=== PATIENT | male | born 1975 | race Caucasian/White ===

== ENCOUNTER → 2017-11-30 12:04 | Outpatient (CLI) | payer OTHER, SELFPAY ==
--- NOTE | 2017-11-30 12:35 | CT_ITS ---
STUDY: CT ABDOMEN AND PELVIS WITHOUT CONTRAST REASON FOR EXAM: Male, 42 years old. Left-sided abdominal pain and diarrhea. RADIATION DOSAGE (If Supplied By Facility): CTDIvol = ( 17.58 ) mGy, DLP = ( 1001.31 ) mGycm TECHNIQUE: Transaxial images were obtained from the dome of the diaphragm to the symphysis pubis without oral contrast, and without intravenous contrast. Sagittal and coronal images were reconstructed. Individualized dose optimization techniques were used for this CT. COMPARISON: Comparison is made with prior examination of December 11, 2008. FINDINGS: Mild degree of increased markings at the lung bases suggestive of mild atelectasis and/or scarring. The visualized portions of the heart are within normal limits. There is decreased attenuation of the liver consistent with steatosis. I suspect focal fatty sparing in the region of the gallbladder fossa. There is also evidence of a 1.2 cm rounded nodule of increased attenuation. This may represent a small hemangioma. This is unchanged. Normal gallbladder and extrahepatic biliary system. Normal spleen. Normal pancreas. Normal bilateral adrenal glands. Normal right kidney. Normal left kidney. Normal visualized stomach. Normal small intestine. There are scattered colonic diverticula consistent with diverticulosis. There are surgical clips in the region of the appendix consistent with a prior appendectomy. Normal abdominal aorta. Normal inferior vena cava. Normal retroperitoneum. Normal urinary bladder. There is a left-sided inguinal hernia containing adipose tissue. Normal osseous structures. CT/Abdomen/Pelvis without Cont IMPRESSION: Diffuse fatty infiltration of the liver with findings suggestive of a focal fatty sparing. Gallbladder fossa as well as a small hemangioma. Small left inguinal hernia containing fat. Electronically Signed: Tristan Patton MD at 14:06 EDT Tel [phone], Service support ,
[2017-11-30 13:22] LABS: Absolute Lymphocyte Count 2.06 X10^3/ul (0.83-4.51); Basophil# 0.02 X10^3/uL; Basophil% 0.2 % (0-1); Eosinophil# 0.12 X10^3/uL; Eosinophils% 1.5 % (0-5); Hematocrit 48.1 % (40-54); Hemoglobin 16.5 g/dl (13.0-16.5); Lymphocyte # 2.06 X10^3/ul (4.0); Lymphocyte % 25.7 % (19-41); Mean Corp Hgb Conc 34.3 g/gl (32-36); Mean Corpuscular Hgb 29.5 pg (27.0-32.0); Mean Corpuscular Volume 85.9 fL (80-94); Neutrophil # 5.02 X10^3/uL (2.7-7.7); Neutrophil % 62.5 % (47-70); Platelet Count 195 K/mm3 (150-450); RBC Distribution Width CV 12.4 % (11.6-14.6)
[2017-11-30 13:24] LABS: POSITIVE COUNT NO; POSITIVE DIFFERENTIAL NO; POSITIVE MORPHOLOGY NO
[2017-11-30 13:53] LABS: ALB/GLOB Ratio 0.9 RATIO (0.9-2.4); AST(SGOT) 24 U/L (15-37); Alanine Aminotransfer ALT/SGPT 45 U/L (16-61); Albumin, Serum 3.7 g/dL (3.2-5.0); Alkaline Phosphatase 82 U/L (45-117); Anion Gap 6 (5-15); BUN 19 mg/dL (7-18); BUN/Creat Ratio 18.6 RATIO (10-20); Calcium,Total 9.4 mg/dL (8.5-10.1); Chloride 107 mmol/L (98-107); Cholesterol 206 mg/dL (200); Creatinine, Serum 1.02 mg/dL (0.70-1.30); EST Glomerular Filtration Rate 84 mL/min (>60); Est Glom Filt Rate - Afr Amer 102 mL/min (>60); Glucose 96 mg/dL (74-106); High Density Lipoprotein 39 mg/dL; Potassium 3.6 mmol/L (3.5-5.1); Protein, Total 7.7 g/dL (6.4-8.2); Sodium Level 140 mmol/L (136-145); Triglycerides 390 mg/dL; Very Low Density Lipoprotein 78 mg/dL (5-40)
[2017-11-30 13:56] LABS: Hemoglobin A1c 6.1 % (4.2-6.3)
== END ==
PROVIDERS: Family Provider Internal Medicine; PCP Internal Medicine; Visit Provider Internal Medicine
DX: R10.9 Unspecified abdominal pain (principal); R73.03 Prediabetes
CPT/HCPCS: 36415; 74176; 80053; 80061; 83036; 85025

== ENCOUNTER → 2018-06-01 11:55 | Outpatient (CLI) | payer BC, SELFPAY ==
[2018-06-01 11:47] VITALS: BMI 33.2
--- NOTE | 2018-06-01 12:00 | RAD_ITS ---
STUDY: X-RAY CHEST REASON FOR EXAM: Male, 43 years old. Chest pain and cough TECHNIQUE: PA and lateral views of the chest. COMPARISON: None. FINDINGS: There are interstitial fibrotic changes of the lungs. There is no demonstrated pleural abnormality. Normal size heart. Normal mediastinum and vinicius. Normal visualized pulmonary arteries. Normal visualized aortic arch and descending thoracic aorta. Normal visualized thoracic spine. Normal visualized ribs, clavicles, and shoulders. There is no demonstrated abnormality of the visualized soft tissue structures of the upper abdomen. RAD/Chest PA and Lateral IMPRESSION: Chronic interstitial changes, no superimposed acute pulmonary process Electronically Signed: Leonid Shah MD at 12:14 EST , Service support ,
== END ==
PROVIDERS: Family Provider Internal Medicine; PCP Internal Medicine; Referring Provider Physician Assistant Surgical; Visit Provider Physician Assistant Surgical
DX: J20.9 Acute bronchitis, unspecified (principal); R04.2 Hemoptysis
CPT/HCPCS: 71046

== ENCOUNTER → 2021-02-18 08:31 | Outpatient (CLI) | payer BC, SELFPAY ==
[2021-02-18 12:16] LABS: Absolute Lymphocyte Count 1.78 X10^3/uL (0.83-4.51); Absolute Neutrophil Count 3.3 X10^3/uL (2.0-7.7); Basophil# 0.06 X10^3/uL; Eosinophil# 0.18 X10^3/uL; Hematocrit 51.2 % (40-54); Hemoglobin 16.8 g/dL (13.0-16.5); Lymphocyte # 1.78 X10^3/ul (0.83-4.51); Lymphocyte % 29.9 % (19-41); Mean Corp Hgb Conc 32.8 g/dL (32-36); Mean Corpuscular Hgb 29.2 pg (27.0-32.0); Mean Platelet Vol. 10.8 fl (6.2-12.0); Monocyte# 0.55 X10^3/uL; Monocyte% 9.2 % (0-10); NRBC Flagged by Analyzer 0 % (0-5); Neutrophil # 3.34 X10^3/uL (2.7-7.7); Neutrophil % 56.2 % (47-70); Platelet Count 233 K/mm3 (150-450); RBC Distribution Width CV 12.1 % (11.6-14.6); RBC Distribution Width SD 39.5 fl (35.1-43.9); Red Blood Count 5.75 M/mm3 (4.6-6.2)
[2021-02-18 12:50] LABS: ALB/GLOB Ratio 0.8 RATIO (0.9-2.4); AST(SGOT) 20 U/L (15-37); Alanine Aminotransfer ALT/SGPT 42 U/L (16-61); Albumin, Serum 3.7 g/dL (3.2-5.0); Alkaline Phosphatase 107 U/L (45-117); Anion Gap 9 (5-15); BUN 18 mg/dL (7-18); Calcium,Total 9.6 mg/dL (8.5-10.1); Chloride 104 mmol/L (98-107); Cholesterol 213 mg/dL (200); Creatinine, Serum 1.06 mg/dL (0.70-1.30); EST Glomerular Filtration Rate 80 mL/min (>60); Est Glom Filt Rate - Afr Amer 96 mL/min (>60); Globulin 4.7 g/dL (2.2-4.2); Glucose 165 mg/dL (74-106); High Density Lipoprotein 37 mg/dL; Potassium 4.5 mmol/L (3.5-5.1); Protein, Total 8.4 g/dL (6.4-8.2); Sodium Level 138 mmol/L (136-145); Triglycerides 260 mg/dL; Very Low Density Lipoprotein 52 mg/dL (5-40)
[2021-02-18 12:55] LABS: Hemoglobin A1c 7.2 % (3.8-5.6)
== END ==
PROVIDERS: PCP Internal Medicine; Referring Provider Internal Medicine; Visit Provider Internal Medicine
DX: E78.5 Hyperlipidemia, unspecified (principal); R73.03 Prediabetes
CPT/HCPCS: 36415; 80053; 80061; 83036; 85025

== ENCOUNTER 2021-06-27 17:09 | Emergency (ER) | payer OTHER, SELFPAY ==
[2021-06-27 17:10] VITALS: BP 139/79; PULSE 104; RESP 16; TEMP 37.4; O2SAT 97; BMI 33.2
--- NOTE | 2021-06-27 17:42 | US_ITS ---
HISTORY: Right upper quadrant pain. TECHNIQUE: [place] scale and color Doppler imaging was performed of the right upper quadrant. COMPARISON: None FINDINGS: # of images incl. paperwork: 111 LIVER: Diffusely increased echotexture without focal parenchymal lesion. Normal portal venous blood flow. GALLBLADDER: Sludge without discrete stones or wall thickening. No pericholecystic fluid. Sonographic Draper's sign reported negative. BILE DUCTS: The extrahepatic common duct measures 4 mm in AP diameter, which is within normal limits for the patient's age. PANCREAS: No acute abnormality of the visualized portion. RIGHT KIDNEY: 11.1 cm. No hydronephrosis. US/Gallbladder IMPRESSION: Gallbladder sludge without sonographic findings of acute cholecystitis. No sonographic evidence for an acute abnormality in the right upper quadrant. at 1937 Reported and signed by: Fabian Becerra MD Electronically Signed: Fabian Becerra MD at 19:35 EST ,
--- NOTE | 2021-06-27 17:44 | EX.ED.DYSGE1 ---
HPI <NEO Carmichael - Last Filed: 06/27/21 20:06> History of Present Illness Chief Complaint: Nausea/Vomiting/Diarrhea Narrative Narrative: 46-year-old male with PMH of type 2 diabetes presents with N/V/D. Last evening he ate 3 slices of pizza with pepperoni and mushrooms on it. Approximately 30 minutes later he developed right upper abdominal cramping, vomiting, and loose stools. He states the vomiting subsided with only one episode this morning and he has been able to keep down Gatorade. He is still had over 10 episodes of nonbloody loose stools and abdominal pain. He feels chilled. No fever. Abdominal surgical history includes umbilical hernia repair and appendectomy. PFSH <NEO Carmichael - Last Filed: 06/27/21 20:06> [facility] Medical History Abnormal EKG Depression GERD (gastroesophageal reflux disease) Hearing problem Hyperlipidemia Hypertension Type 2 diabetes mellitus Home Medications blood sugar diagnostic #100 ea 02/18/21 [Rx Last Taken Unknown] blood-glucose meter #1 ea 02/18/21 [Rx Last Taken Unknown] lancets 28 gauge #200 ea 02/18/21 [Rx Last Taken Unknown] omeprazole 40 mg capsule,delayed release 40 mg PO DAILY #90 cap 02/18/21 [Rx Last Taken Unknown] metformin 850 mg tablet 850 mg PO BID #180 tab 04/01/21 [Rx Last Taken Unknown] ondansetron 4 mg PO Q8H PRN PRN #10 tab 06/27/21 [Rx Last Taken Unknown] oxycodone-acetaminophen [Percocet] 1 tab PO Q8H PRN 3 Days #12 tab 06/27/21 [Rx Last Taken Unknown] Allergy/AdvReac Type Severity Reaction Status Date / Time No Known Allergies Allergy Verified 06/27/21 17:12 Family History Father Myocardial infarction Mother Diabetes CVA (cerebral vascular accident) Breast cancer Surgical History History of appendectomy History of hernia repair Social History Smoking Status: Never smoker alcohol intake: current alcohol intake frequency: holidays/special occasions only Alcohol type: hard liquor substance use type: does not use what type of physical activity do you participate in: none ROS <NEO Carmichael - Last Filed: 06/27/21 20:06> ROS ED ROS Narrative Constitutional: Negative for fever, chills, malaise. Eyes: Negative for visual change. ENT: Negative for sore throat, ear pain, rhinorrhea. CVS: Negative for palpitations, chest pain, syncope. Respiratory: Negative for shortness of breath, cough, orthopnea. GI: Positive for abdominal pain, nausea, vomiting, diarrhea. Negative for constipation, melena, hematochezia. : Negative for dysuria, hematuria or frequency. Neuro: Negative for headache, motor/sensory dysfunction. Skin: Negative for rash, abscess, or wound. Musc: Negative for joint pain, swelling, trauma. Heme: Negative for easy bruising, bleeding, lymphadenopathy. EXAM <NEO Carmichael - Last Filed: 06/27/21 20:06> Physical Exam Narrative Exam Narrative: CONST: Patient appears uncomfortable but nontoxic. EYES: Normal inspection. ENT: Normal inspection, moist mucous membranes. NECK: Normal inspection. RESP: No respiratory distress, CTAB. CVS: Regular rate and rhythm, no murmur, no gallop. ABD: Soft with TTP in RUQ and positive draper sign, no guarding or rebound, nondistended, no hepatosplenomegaly. Back: Normal inspection, no CVA tenderness. SKIN: Color normal, no rash, warm, dry, intact. EXTREMITIES: Normal appearance, no pedal edema. NEURO: Oriented x4. PSYCH: Normal affect. Const Vital Signs: 06/27/21 17:10 06/27/21 19:10 06/27/21 19:23 Temperature 99.4 F H 98.3 F Temperature Source Temporal Oral Pulse Rate 104 H 88 Respiratory Rate 16 17 Blood Pressure 139/79 H 127/77 H Blood Pressure Mean 99 93 Pulse Ox 97 95 Oxygen Delivery Method Room Air Room Air 06/27/21 20:12 Temperature Temperature Source Pulse Rate 84 Respiratory Rate 17 Blood Pressure 121/74 H Blood Pressure Mean Pulse Ox 98 Oxygen Delivery Method <Dr. Willy Raymond MD - Last Filed: 06/27/21 20:26> Physical Exam Const Vital Signs: 06/27/21 17:10 06/27/21 19:10 06/27/21 19:23 Temperature 99.4 F H 98.3 F Temperature Source Temporal Oral Pulse Rate 104 H 88 Respiratory Rate 16 17 Blood Pressure 139/79 H 127/77 H Blood Pressure Mean 99 93 Pulse Ox 97 95 Oxygen Delivery Method Room Air Room Air 06/27/21 20:12 Temperature Temperature Source Pulse Rate 84 Respiratory Rate 17 Blood Pressure 121/74 H Blood Pressure Mean Pulse Ox 98 Oxygen Delivery Method [facility] <NEO Carmichael - Last Filed: 06/27/21 20:06> [facility] Narrative Medical decision making narrative: Patient presents with right upper quadrant abdominal pain that started after eating. He is also had vomiting and diarrhea. He appears uncomfortable but nontoxic. He was slightly tachycardic at 104, otherwise normal vital signs. He is focal tenderness in the right upper quadrant with positive Draper sign. No peritoneal signs. Labs show normal white count. Mild hypokalemia 3.2, normal renal function, normal liver enzymes. Lipase WNL. RUQ ultrasound shows gallbladder sludge with no signs of cholecystitis. On ED attending review there is a single gallstone and no indication of significant sludge or infectious process. Patient had symptomatic improvement after analgesia and antiemetics and is tolerating p.o. intake. He is stable for outpatient follow-up with surgery for an elective cholecystectomy. We discussed diet changes and signs that would warrant return. He was discharged in stable condition. Diagnoses 1. Biliary colic 2. Diarrhea Lab Data Labs: Laboratory Results - last 24 hr 06/27/21 06/27/21 18:00 18:00 WBC 9.2 RBC 5.72 Hgb 16.7 H Hct 47.4 MCV 82.9 MCH 29.2 MCHC 35.2 RDW Std Deviation 37.6 RDW Coeff of Davian 12.4 Plt Count 189 MPV 10.4 Immature Gran % (Auto) 0.500 Neut % (Auto) 85.1 H Lymph % (Auto) 7.6 L [place] % (Auto) 6.1 Eos % (Auto) 0.5 Baso % (Auto) 0.2 Absolute Neuts (auto) 7.8 H Absolute Lymphs (auto) 0.70 L Nucleated RBC % 0 Sodium 136 Potassium 3.2 L Chloride 104 Carbon Dioxide 26.0 Anion Gap 6 BUN 21 H Creatinine 1.19 Estim Creat Clear Calc 79.24 Est GFR (MDRD) Af Amer 84 Est GFR (MDRD) Non-Af 70 BUN/Creatinine Ratio 17.6 Glucose 116 H Calcium 8.7 Total Bilirubin 0.80 AST 18 ALT 45 Alkaline Phosphatase 76 Total Protein 7.6 Albumin 3.6 Globulin 4.0 Albumin/Globulin Ratio 0.9 Lipase 28 L Radiography Diagnostic Testing: Clinical Impression(s) from Imaging Studies Gallbladder Ultrasound 06/27/21 17:42 IMPRESSION: Gallbladder sludge without sonographic findings of acute cholecystitis. No sonographic evidence for an acute abnormality in the right upper quadrant. at 1937 Reported and signed by: Fabian Becerra MD Electronically Signed: Fabian Becerra MD at 19:35 EST Reading Location ID and State: [address] [place] [address] Tel , Service support , <Dr. Willy Raymond MD - Last Filed: 06/27/21 20:26> [facility] MDM Narrative Medical decision making narrative: Patient is a 46-year-old male with history of type 2 diabetes diagnosed in February, hypertension, hyperlipidemia and sleep apnea who presents with right upper quadrant pain after having 3 slices of pizza. He presents with nausea vomiting. His exam is remarkable for significant right upper quadrant pain with a clinical Draper sign. Will obtain appropriate blood work and ultrasound. Lab Data Attestation: I reviewed the patient's lab results. Lab results narrative: CBC is normal. Differential reveals 85 segs with no bandemia. Comprehensive metabolic panel is remarkable for slight elevation glucose of 116. CO2 and anion gap are normal. Hepatic enzymes are normal. From my review of ultrasound there is evidence of cholelithiasis without evidence of cholecystitis. Awaiting formal read. Since patient's renal function is normal and he was just diagnosed with diabetes will treat his pain with Toradol as well as the morphine he initially received. Labs: Laboratory Results - last 24 hr 06/27/21 06/27/21 18:00 18:00 WBC 9.2 RBC 5.72 Hgb 16.7 H Hct 47.4 MCV 82.9 MCH 29.2 MCHC 35.2 RDW Std Deviation 37.6 RDW Coeff of Davian 12.4 Plt Count 189 MPV 10.4 Immature Gran % (Auto) 0.500 Neut % (Auto) 85.1 H Lymph % (Auto) 7.6 L [place] % (Auto) 6.1 Eos % (Auto) 0.5 Baso % (Auto) 0.2 Absolute Neuts (auto) 7.8 H Absolute Lymphs (auto) 0.70 L Nucleated RBC % 0 Sodium 136 Potassium 3.2 L Chloride 104 Carbon Dioxide 26.0 Anion Gap 6 BUN 21 H Creatinine 1.19 Estim Creat Clear Calc 79.24 Est GFR (MDRD) Af Amer 84 Est GFR (MDRD) Non-Af 70 BUN/Creatinine Ratio 17.6 Glucose 116 H Calcium 8.7 Total Bilirubin 0.80 AST 18 ALT 45 Alkaline Phosphatase 76 Total Protein 7.6 Albumin 3.6 Globulin 4.0 Albumin/Globulin Ratio 0.9 Lipase 28 L Radiography Diagnostic Testing: Clinical Impression(s) from Imaging Studies Gallbladder Ultrasound 06/27/21 17:42 IMPRESSION: Gallbladder sludge without sonographic findings of acute cholecystitis. No sonographic evidence for an acute abnormality in the right upper quadrant. at 1937 Reported and signed by: Fabian Becerra MD Electronically Signed: Fabian Becerra MD at 19:35 EST Reading Location ID and State: [address] [place] [address] Tel , Service support , Discharge Plan Triage Chief Complaint: Nausea/Vomiting/Diarrhea ED Provider: Ernestine García Dx/Rx/DC Orders Clinical Impression: Biliary colic, Borderline type 2 diabetes mellitus, Hyperlipidemia, Hypertension, Cholelithiasis Instructions: ED Gallstones with Biliary Colic Prescriptions: New ondansetron 4 mg tablet,disintegrating 4 mg PO Q8H PRN PRN (Reason: Nausea) Qty: 10 RF: 0 oxycodone-acetaminophen [Percocet] 5-325 mg tablet 1 tab PO Q8H PRN (Reason: pain) 3 Days Qty: 12 RF: 0 No Action omeprazole 40 mg capsule,delayed release(DR/EC) 40 mg PO DAILY Qty: 90 RF: 1 metformin 850 mg tablet 850 mg PO BID Qty: 180 RF: 1 (DME) FreeStyle Lite Strips Strip See Rx Instructions .MEDSUPPLY Qty: 100 RF: 3 (DME) blood-glucose meter [FreeStyle Lite Meter] Kit See Rx Instructions .MEDSUPPLY Qty: 1 RF: 0 (DME) lancets [FreeStyle Lancets] 28 gauge misc See Rx Instructions .MEDSUPPLY Qty: 200 RF: 3 Primary Care Provider: Lenny Malik Referrals: Diego Ku MD [STAFF PHYSICIAN] - Lenny Malik MD [Primary Care Provider] - Activity Restrictions/Additional Instructions: Today you were seen for abdominal pain, vomiting, diarrhea. The ultrasound showed that you do have stones in your gallbladder. Right now there is no sign of infection, but this is the likely source of your pain. At this time you need to avoid eating fried or fatty foods because it will worsen the gallbladder pain. Please call the general surgeon above because you will need to have your gallbladder removed at a later time. If you have worsening pain or develop a fever or any new symptoms that concern you come back to the ER Disposition Disposition: Home, Self Care
[2021-06-27] MEDS: 0.9% Normal Saline 1,000 ML 999 ML IV (17:57)
[2021-06-27] MEDS: Ondansetron 4 MG/2 ML Vial IV ×2 (17:57→19:09)
[2021-06-27 18:30] LABS: Absolute Neutrophil Count 7.8 X10^3/uL (2.0-7.7); Basophil# 0.02 X10^3/uL; Basophil% 0.2 % (0-1); Eosinophil# 0.05 X10^3/uL; Eosinophils% 0.5 % (0-5); Hematocrit 47.4 % (40-54); Hemoglobin 16.7 g/dL (13.0-16.5); Lymphocyte % 7.6 % (19-41); Mean Corp Hgb Conc 35.2 g/dL (32-36); Mean Corpuscular Hgb 29.2 pg (27.0-32.0); Mean Corpuscular Volume 82.9 fL (80-94); Mean Platelet Vol. 10.4 fl (6.2-12.0); Monocyte# 0.56 X10^3/uL; Monocyte% 6.1 % (0-10); NRBC Flagged by Analyzer 0 % (0-5); Neutrophil # 7.82 X10^3/uL (2.7-7.7); Neutrophil % 85.1 % (47-70); Platelet Count 189 K/mm3 (150-450); RBC Distribution Width CV 12.4 % (11.6-14.6); RBC Distribution Width SD 37.6 fl (35.1-43.9); Red Blood Count 5.72 M/mm3 (4.6-6.2); White Blood Count 9.2 K/mm3 (4.4-11.0)
[2021-06-27 18:42] LABS: ALB/GLOB Ratio 0.9 RATIO (0.9-2.4); AST(SGOT) 18 U/L (15-37); Alanine Aminotransfer ALT/SGPT 45 U/L (16-61); Albumin, Serum 3.6 g/dL (3.2-5.0); Alkaline Phosphatase 76 U/L (45-117); Anion Gap 6 (5-15); BUN 21 mg/dL (7-18); BUN/Creat Ratio 17.6 RATIO (10-20); Calcium,Total 8.7 mg/dL (8.5-10.1); Chloride 104 mmol/L (98-107); Creatinine, Serum 1.19 mg/dL (0.70-1.30); EST Glomerular Filtration Rate 70 mL/min (>60); Est Glom Filt Rate - Afr Amer 84 mL/min (>60); Estimated Creatinine Clearance 79.24 ml/min; Glucose 116 mg/dL (74-106); Lipase 28 U/L (73-393); Potassium 3.2 mmol/L (3.5-5.1); Protein, Total 7.6 g/dL (6.4-8.2); Sodium Level 136 mmol/L (136-145)
[2021-06-27] MEDS: Morphine 4 MG/ML Syringe IV (19:09)
[2021-06-27 19:10] VITALS: TEMP 36.8
[2021-06-27 19:23] VITALS: BP 127/77; PULSE 88; RESP 17; O2SAT 95
[2021-06-27] MEDS: Ketorolac 15 MG/ML Vial IV (19:41)
[2021-06-27 20:12] VITALS: BP 121/74; PULSE 84; RESP 17; O2SAT 98
== END 2021-06-27 21:05 | disposition home or self-care (01) ==
PROVIDERS: Emergency Provider Physician Assistant; PCP Internal Medicine; Visit Provider Physician Assistant
DX: K80.70 Calculus of gallbladder and bile duct without cholecystitis without obstruction (principal); E11.9 Type 2 diabetes mellitus without complications; I10 Essential (primary) hypertension; E78.5 Hyperlipidemia, unspecified; E87.6 Hypokalemia; K83.8 Other specified diseases of biliary tract
CPT/HCPCS: 76705; 80053; 83690; 85025; 99283; J7030; A4216; J2405

== ENCOUNTER 2021-06-28 09:58 | Observation (INO) | payer OTHER, SELFPAY ==
[2021-06-28] VITALS (7 sets, daily range): BP systolic 105–127; BP diastolic 68–85; PULSE 63–80; RESP 14–18; TEMP 36.1–37.3; O2SAT 95–98; BMI 33.0; BMI 33.7
--- NOTE | 2021-06-28 | GALL_PTH ---
PATIENT: KARI LYNN LOC: MS3 U#:[id number] AGE/SX: 46/M ROOM: IA310 RE06/28/[address]: Dr. Goldy Vickers MD : 1975 BED: 1 DIS: 06/29/2021 SPEC #: [id number] RECD: 07/01/21 08:04 STATUS: NAVIN SUE #: [id number] CISCO: 06/28/21 00:[address]: Goldy Vickers DEPT: SURGICAL PATHOLOGY RECD BY: Ambrocio Bueno ENTERED: 07/01/21 08:45 SP TYPE: MONIQUE YUNG DR: Dr. Lenny Malik MD Tissues: Gallbladder, NOS Procedures: Surgery Specimen Level III HEADER OPERATION: Laparoscopic cholecystectomy PRE-OP DIAGNOSIS: Acute cholecystitis due to biliary calculus TISSUE SUBMITTED: Gallbladder MICROSCOPIC DIAGNOSIS Gallbladder, cholecystectomy: Chronic cholecystitis and cholesterolosis. See comment. SJ:alicja 07/02/2021 COMMENT No stones are identified in the container or in the gallbladder. MICROSCOPIC DESCRIPTION Slides are reviewed. GROSS DESCRIPTION Received is one container labeled with the patient's name and designated gallbladder. The specimen consists of a gallbladder measuring 9 cm in length and up to 3.5 cm in diameter. The external surface is pink-uriarte, smooth and glistening for the most part. Focally it is granular, hemorrhagic and contains cautery artifact. The gallbladder contains green-yellow mucoid bile. No stones are identified in the container or in the gallbladder. The mucosa is bile-stained and without any mass lesions. The gallbladder wall measures up to 0.3 cm in thickness. Psychotherapist sections from the gallbladder and the cystic duct are submitted in one cassette. / DAVE:alicja 07/01/2021 TC:3 CPT: 92120
--- NOTE | 2021-06-28 10:49 | EKG12_ITS ---
Test Reason : MEDICAL CLEARANCE Blood Pressure : / mmHG Vent. Rate : 065 BPM Atrial Rate : 065 BPM P-R Int : 180 ms QRS Dur : 106 ms QT Int : 410 ms P-R-T Axes : 046 -17 -13 degrees QTc Int : 426 ms Normal sinus rhythm Normal ECG Confirmed by MONIQUE ROLLINS, STEVEN ([id number]), book editor PARISA MCQUEEN ([id number]) on 07/01/2021 11:51:46 AM Referred By: KEELEY Confirmed By:STEVEN AMAYA MD
[2021-06-28] MEDS: 0.9% Normal Saline 1,000 ML 125 ML IV ×3 (10:50→22:14)
--- NOTE | 2021-06-28 10:52 | EDS_ITS ---
HPI History of Present Illness Chief Complaint: Abd Pain Informant: patient and spouse/S.O. Narrative Narrative: Patient presents with continued right upper quadrant pain. He was just seen here for this. This started Thursday evening. It started about 30 minutes after eating pizza. It has started and stayed in the right upper quadrant. He has felt hot and cold but highest temperature I think is been in the mid 99 range. He has had nausea. He has had vomiting. Despite Zofran he is vomited. He was not able to keep crackers and water down. Prior surgeries include appendectomy and umbilical herniorrhaphy. He has not been having cough or congestion or sore throat. He is vaccinated and booster. Patient had very comprehensive evaluation yesterday. Symptoms were improving with treatment. However, he went home and they are getting worse. [facility] Medical History (Updated 06/28/21 @ 23:[address] Milo Barakat MD) Abnormal EKG Depression GERD (gastroesophageal reflux disease) Hearing problem History of stress test Hyperlipidemia Hypertension Type 2 diabetes mellitus Home Medications blood sugar diagnostic #100 ea 02/18/21 [Rx Last Taken Unknown] blood-glucose meter #1 ea 02/18/21 [Rx Last Taken Unknown] lancets 28 gauge #200 ea 02/18/21 [Rx Last Taken Unknown] metformin 850 mg tablet 850 mg PO BID #180 tab 04/01/21 [Rx Last Taken 2 Days Ago ~06/26/21] ondansetron 4 mg PO Q8H PRN PRN #10 tab 06/27/21 [Rx Last Taken 06/28/21 08:00] oxycodone-acetaminophen [Percocet] 1 tab PO Q8H PRN 3 Days #12 tab 06/27/21 [Rx Last Taken 06/28/21 08:00] omeprazole 40 mg PO DAILY PRN PRN 06/28/21 [History Last Taken 1 Month Ago ~05/28/21] Allergy/AdvReac Type Severity Reaction Status Date / Time No Known Allergies Allergy Verified 06/27/21 17:12 Family History Father Myocardial infarction Mother Diabetes CVA (cerebral vascular accident) Breast cancer Surgical History History of appendectomy History of hernia repair Social History Smoking Status: Never smoker alcohol intake: current alcohol intake frequency: holidays/special occasions only Alcohol type: hard liquor substance use type: does not use what type of physical activity do you participate in: none ROS ROS ED Constitutional Constitutional ED: Reports chills, fever(s) and subjective ENT ENT ED: Denies rhinorrhea or sore throat Cardiovascular Cardiovascular: Denies chest pain or palpitations Respiratory/Chest Respiratory/Chest: Denies cough, dyspnea or sputum Gastrointestinal Gastrointestinal: Reports abdominal pain, nausea and vomiting; Denies diarrhea Genitourinary Genitourinary ED: Denies dysuria, hematuria or urinary frequency Musculoskeletal Musculoskeletal: Denies back pain Integumentary Denies rash Neurologic Neurologic: Denies headache(s) Endocrine Endocrinology: Denies polydipsia or polyuria Allergic/Immunologic Allergic/Immunologic ED: Denies mouth swelling or urticaria EXAM Physical Exam Const Vital Signs: 06/28/21 09:59 06/28/21 12:12 Temperature 97.0 F L 97.9 F Temperature Source Temporal Oral Pulse Rate 80 72 Respiratory Rate 18 16 Blood Pressure 117/80 122/82 H Blood Pressure Mean 92 95 Pulse Ox 98 96 Oxygen Delivery Method Room Air Room Air Positive well nourished and well developed Constitutional Narrative: Patient looks uncomfortable but is not toxic. General Appearance ED: well developed and NAD HEENT Reports moist mucous membranes Eyes General Eye ED: Negative for pale conjunctiva or scleral icterus Neck no JVD Chest Wall inspection of chest normal Resp normal respiratory effort and clear to auscultation bilaterally Auscultation: Negative for rales, rhonchi or wheezes Cardio regular rate and regular rhythm GI normal to inspection, nondistended, normoactive bowel sounds GI Narrative: Patient has reproducible tenderness in the right upper quadrant. He does have a positive Draper sign. Palpation: soft Back/Spine no CVA tenderness Extremity normal to inspection Neuro oriented x3 Sensorium / Orientation: alert Psych mental status grossly normal Skin no rashes or lesions noted and no wounds MDM MDM MDM Narrative Medical decision making narrative: CBC electrolytes liver function tests are not showing any marked abnormalities. I discussed case with Dr. Vickers. I did not redo imaging on this patient. However, he has a rather classic story for cholecystitis and has some sludge in his gallbladder yesterday. Dr. Vickers saw him. He is being admitted with planned surgery likely tomorrow. I think with the failure to manage this as an outpatient and slowly worsening going home again would not be ideal. Lab Data Attestation: I reviewed the patient's lab results. Labs: Laboratory Results - last 24 hr 06/28/21 06/28/21 06/28/21 10:22 10:22 10:22 WBC 5.1 RBC 5.35 Hgb 15.4 Hct 46.0 MCV 86.0 MCH 28.8 MCHC 33.5 RDW Std Deviation 39.3 RDW Coeff of Davian 12.6 Plt Count 180 MPV 10.0 Immature Gran % (Auto) 0.600 Neut % (Auto) 59.1 Lymph % (Auto) 21.6 [place] % (Auto) 15.6 H Eos % (Auto) 2.9 Baso % (Auto) 0.2 Absolute Neuts (auto) 3.0 Absolute Lymphs (auto) 1.11 Nucleated RBC % 0 Sodium 137 Potassium 3.4 L Chloride 105 Carbon Dioxide 26.0 Anion Gap 6 BUN 19 H Creatinine 1.16 Estim Creat Clear Calc 81.29 Est GFR (MDRD) Af Amer 87 Est GFR (MDRD) Non-Af 72 BUN/Creatinine Ratio 16.4 Glucose 112 H Hemoglobin A1c 6.3 H Calcium 8.5 Total Bilirubin 0.50 AST 21 ALT 41 Alkaline Phosphatase 65 Total Protein 6.9 Albumin 3.1 L Globulin 3.8 Albumin/Globulin Ratio 0.8 L Lipase 45 L Discharge Plan Dx/Rx/DC Orders Clinical Impression: Abdominal pain, Acute cholecystitis, Intractable nausea and vomiting, Failure of outpatient treatment Disposition Disposition: [facility] Discharge Date/Time: 06/28/21 15:29
[2021-06-28] MEDS: Morphine 4 MG/ML Syringe IV (10:59)
[2021-06-28] MEDS: Ondansetron 4 MG/2 ML Vial IV ×3 (11:00→22:14)
[2021-06-28 11:02] LABS: Absolute Lymphocyte Count 1.11 X10^3/uL (0.83-4.51); Basophil# 0.01 X10^3/uL; Basophil% 0.2 % (0-1); Eosinophil# 0.15 X10^3/uL; Eosinophils% 2.9 % (0-5); Hemoglobin 15.4 g/dL (13.0-16.5); Lymphocyte # 1.11 X10^3/ul (0.83-4.51); Lymphocyte % 21.6 % (19-41); Mean Corp Hgb Conc 33.5 g/dL (32-36); Mean Corpuscular Hgb 28.8 pg (27.0-32.0); Monocyte% 15.6 % (0-10); NRBC Flagged by Analyzer 0 % (0-5); Neutrophil # 3.03 X10^3/uL (2.7-7.7); Neutrophil % 59.1 % (47-70); Platelet Count 180 K/mm3 (150-450); RBC Distribution Width CV 12.6 % (11.6-14.6); RBC Distribution Width SD 39.3 fl (35.1-43.9); Red Blood Count 5.35 M/mm3 (4.6-6.2); White Blood Count 5.1 K/mm3 (4.4-11.0)
[2021-06-28 11:14] LABS: ALB/GLOB Ratio 0.8 RATIO (0.9-2.4); AST(SGOT) 21 U/L (15-37); Alanine Aminotransfer ALT/SGPT 41 U/L (16-61); Albumin, Serum 3.1 g/dL (3.2-5.0); Alkaline Phosphatase 65 U/L (45-117); Anion Gap 6 (5-15); BUN 19 mg/dL (7-18); BUN/Creat Ratio 16.4 RATIO (10-20); Calcium,Total 8.5 mg/dL (8.5-10.1); Chloride 105 mmol/L (98-107); Creatinine, Serum 1.16 mg/dL (0.70-1.30); EST Glomerular Filtration Rate 72 mL/min (>60); Est Glom Filt Rate - Afr Amer 87 mL/min (>60); Estimated Creatinine Clearance 81.29 ml/min; Globulin 3.8 g/dL (2.2-4.2); Glucose 112 mg/dL (74-106); Lipase 45 U/L (73-393); Potassium 3.4 mmol/L (3.5-5.1); Protein, Total 6.9 g/dL (6.4-8.2); Sodium Level 137 mmol/L (136-145)
--- NOTE | 2021-06-28 14:17 | CON.PCM.SX_ITS ---
Assessment & Plan Assessment/Plan (1) Acute cholecystitis due to biliary calculus: PLAN: My plan will be to perform a laparoscopic cholecystectomy Reviewed the anatomy with the patient and discussed the procedure: laparoscopic cholecystectomy with possible cholangiograms, possible open. Review risks including but not limited to bleeding, infection, hernia, bile leak, retained gallstones requiring another procedure ERCP- Endoscopic Retrograde Cholangiopancreatography, injury to another organ (bile ducts, common bile duct, small bowel, etc.) and conversion to an open procedure. All questions were answered. HPI Consult Data Date of Consult: 06/28/21 HPI Narrative HPI Narrative: KARI LYNN, is a 46 M Patient presents with continued right upper quadrant pain. He was just seen here for this. This started Thursday evening. It started about 30 minutes after eating pizza. It has started and stayed in the right upper quadrant. He has felt hot and cold but highest temperature I think is been in the mid 99 range. He has had nausea. He has had vomiting. Despite Zofran he is vomited. He was not able to keep crackers and water down. Prior surgeries include appendectomy and umbilical herniorrhaphy. He has not been having cough or congestion or sore throat. He is vaccinated and booster. FORMERLY [facility] Medical History Abnormal EKG Depression GERD (gastroesophageal reflux disease) Hearing problem Hyperlipidemia Hypertension Type 2 diabetes mellitus Home Medications blood sugar diagnostic #100 ea 02/18/21 [Rx Last Taken Unknown] blood-glucose meter #1 ea 02/18/21 [Rx Last Taken Unknown] lancets 28 gauge #200 ea 02/18/21 [Rx Last Taken Unknown] metformin 850 mg tablet 850 mg PO BID #180 tab 04/01/21 [Rx Last Taken Unknown] ondansetron 4 mg PO Q8H PRN PRN #10 tab 06/27/21 [Rx Last Taken Unknown] oxycodone-acetaminophen [Percocet] 1 tab PO Q8H PRN 3 Days #12 tab 06/27/21 [Rx Last Taken Unknown] omeprazole 40 mg PO DAILY PRN PRN 06/28/21 [History Last Taken 1 Month Ago ~05/28/21] Allergy/AdvReac Type Severity Reaction Status Date / Time No Known Allergies Allergy Verified 06/27/21 17:12 Family History Father Myocardial infarction Mother Diabetes CVA (cerebral vascular accident) Breast cancer Surgical History History of appendectomy History of hernia repair Social History Smoking Status: Never smoker alcohol intake: current alcohol intake frequency: holidays/special occasions only Alcohol type: hard liquor substance use type: does not use what type of physical activity do you participate in: none ROS Constitutional Constitutional: Reports chills and fatigue Eyes Eyes: Denies blurry vision Cardiovascular Cardiovascular: Denies chest pain or dyspnea Respiratory/Chest Respiratory/Chest: Denies cough or dyspnea Gastrointestinal Gastrointestinal: Reports abdominal pain, nausea and vomiting Physical Exam Const alert and oriented x3 General Appearance: cooperative HEENT normocephalic and head/scalp atraumatic Eyes PERRL and EOMs intact bilaterally Resp normal respiratory effort and clear to auscultation bilaterally Cardio Rate: regular rate Rhythm: regular rhythm GI Palpation: tender RUQ and Darper's sign Lab / Micro Data Result Diagrams: 06/28/21 10:22 06/28/21 10:22 Labs: Laboratory Results - last 24 hr 06/28/21 10:22: WBC 5.1, RBC 5.35, Hgb 15.4, Hct 46.0, MCV 86.0, MCH 28.8, MCHC 33.5, RDW Std Deviation 39.3, RDW Coeff of Davian 12.6, Plt Count 180, MPV 10.0, Immature Gran % (Auto) 0.600, Neut % (Auto) 59.1, Lymph % (Auto) 21.6, [place] % (Auto) 15.6 H, Eos % (Auto) 2.9, Baso % (Auto) 0.2, Absolute Neuts (auto) 3.0, Absolute Lymphs (auto) 1.11, Nucleated RBC % 0 06/28/21 10:22: Sodium 137, Potassium 3.4 L, Chloride 105, Carbon Dioxide 26.0, Anion Gap 6, BUN 19 H, Creatinine 1.16, Estim Creat Clear Calc 81.29, Est GFR (MDRD) Af Amer 87, Est GFR (MDRD) Non-Af 72, BUN/Creatinine Ratio 16.4, Glucose 112 H, Calcium 8.5, Total Bilirubin 0.50, AST 21, ALT 41, Alkaline Phosphatase 65, Total Protein 6.9, Albumin 3.1 L, Globulin 3.8, Albumin/Globulin Ratio 0.8 L , Lipase 45 L
[2021-06-28] MEDS: HYDROmorphone 0.5 MG/0.5 ML SYRINGE IV ×3 (15:27→22:11)
[2021-06-28] MEDS: 0.9% Saline Lock 10 ML Syringe IV (18:57)
[2021-06-28 19:48] LABS: Hemoglobin A1c 6.3 % (3.8-5.6)
[2021-06-29] VITALS (8 sets, daily range): BP systolic 101–120; BP diastolic 60–75; PULSE 59–76; RESP 14–18; TEMP 36.5–37.1; O2SAT 94–96; BMI 33.7
[2021-06-29] MEDS: HYDROmorphone 0.5 MG/0.5 ML SYRINGE IV ×4 (00:22→10:15)
[2021-06-29] MEDS: 0.9% Normal Saline 1,000 ML 125 ML IV (05:46)
[2021-06-29 06:16] LABS: Absolute Lymphocyte Count 1.09 X10^3/uL (0.83-4.51); Absolute Neutrophil Count 3.2 X10^3/uL (2.0-7.7); Basophil# 0.02 X10^3/uL; Basophil% 0.4 % (0-1); Eosinophil# 0.17 X10^3/uL; Eosinophils% 3.3 % (0-5); Hematocrit 43.2 % (40-54); Hemoglobin 14.7 g/dL (13.0-16.5); Lymphocyte # 1.09 X10^3/ul (0.83-4.51); Mean Corpuscular Hgb 29.3 pg (27.0-32.0); Mean Corpuscular Volume 86.1 fL (80-94); Mean Platelet Vol. 9.7 fl (6.2-12.0); Monocyte# 0.72 X10^3/uL; Monocyte% 13.8 % (0-10); NRBC Flagged by Analyzer 0 % (0-5); Neutrophil # 3.17 X10^3/uL (2.7-7.7); Neutrophil % 60.9 % (47-70); Platelet Count 183 K/mm3 (150-450); RBC Distribution Width CV 12.5 % (11.6-14.6); RBC Distribution Width SD 39.5 fl (35.1-43.9); Red Blood Count 5.02 M/mm3 (4.6-6.2); White Blood Count 5.2 K/mm3 (4.4-11.0)
[2021-06-29 06:48] LABS: ALB/GLOB Ratio 0.8 RATIO (0.9-2.4); AST(SGOT) 19 U/L (15-37); Alanine Aminotransfer ALT/SGPT 38 U/L (16-61); Albumin, Serum 2.7 g/dL (3.2-5.0); Alkaline Phosphatase 60 U/L (45-117); Amylase 20 U/L (25-115); Anion Gap 5 (5-15); BUN 16 mg/dL (7-18); BUN/Creat Ratio 15.4 RATIO (10-20); Calcium,Total 7.9 mg/dL (8.5-10.1); Chloride 108 mmol/L (98-107); Creatinine, Serum 1.04 mg/dL (0.70-1.30); EST Glomerular Filtration Rate 81 mL/min (>60); Est Glom Filt Rate - Afr Amer 98 mL/min (>60); Estimated Creatinine Clearance 90.67 ml/min; Globulin 3.6 g/dL (2.2-4.2); Glucose 101 mg/dL (74-106); Lipase 59 U/L (73-393); Potassium 3.7 mmol/L (3.5-5.1); Protein, Total 6.3 g/dL (6.4-8.2); Sodium Level 140 mmol/L (136-145)
[2021-06-29] MEDS: Bupivacaine Mpf 0.5% 30 ML VIAL (08:23)
[2021-06-29 08:51] LABS: Bedside Glucose 111 mg/dL (70-110)
--- NOTE | 2021-06-29 09:06 | OP.PCM_ITS ---
Problems Associated Problem List Diagnoses (1) Acute cholecystitis: Report of Operation Date of Procedure: 06/29/21 Pre-Operative Diagnosis: Acute cholecystitisAcute cholecystitis Post-Operative Diagnosis: Same Surgery/Procedure Performed:: Laparoscopic cholecystectomy Surgeon: Goldy Vickers business services specialist sales: Bryanna Shaver Type of Anesthesia: General Anesthesiologist: Donny Quiles Specimen's removed: Gallbladder Drains: None Estimated Blood Loss (mL): < 25 cc Description of Procedure: Patient was brought into the operating room. Placed in the supine position. Under excellent general anesthesia. The abdomen was sterilely prepped and draped in the usual fashion. Local was injected above the umbilicus dissection was carried down through previous incision that I had made to take out his appendix. Varies needle was placed inside the abdomen the abdomen was insufflated 15 torr a 10/12 trocar was placed without difficulty. Patient was placed in the head up and rotated position subxiphoid #5 trochars placed, inferior to this another #5 trocar was placed, laterally #5 trocar was placed. All these trochars were placed under direct visualization without injury to underlying structures. Patient was noted to have acute cholecystitis. I aspirated out the gallbladder. I grasped the fundus of the gallbladder and retracted in the cephalad direction. Infundibulum was grasped and retracted laterally. I dissected out the cystic duct place hemoclips proximally and distally identified the cystic artery placed hemoclips proximally and distally and ligated the artery. Identified the posterior branch of the cystic artery and clipped that as well. I deliver the gallbladder from the gallbladder bed without spillage of bile or stones. I had excellent hemostasis. Placed the specimen in a specimen bag delivered through the umbilical port without difficulty. I irrigated the right upper quadrant. Good hemostasis was noted. The trochars were removed under direct visualization good and the stasis was noted. The fascia of the 1012 trocar was closed with a [id number] stitch of 0 Vicryl. Skin incisions were closed with subcuticular stitches of 4-0 Monocryl. Steri-Strips were applied sterile dressings were applied and the patient tolerated the procedure well. Admit VTE Documentation VTE Present on Admission: No VTE Mechan Device Prophylaxis: SCD's VTE Pharm Prophylaxis ordered?: No Reason prophylaxis not ordered:: Treatment Not Indicated
--- NOTE | 2021-06-29 09:11 | EX.PCM.DISCH ---
Discharge Instructions Procedure Gallbladder Diet Discharge Diet: Light diet - advance as tolerated Activity Discharge Activity: May Not Drive (for 2-3 days or while taking narcotic pain medications.) and - (Do not drive, work heavy equipment or sign legal documents for 24 hours.) May shower in (days): 1 (with the bandage in place.) Additional Activity Instructions:: Pain medication may cause nausea. You should typically eat light foods as you take your pain medications. Pain medication may also cause constipation. If this is a problem for you, please discuss with your doctor. Dressing / Incision Call your doctor if your incision/area has: Continuous Slow Oozing, Sudden Increased Bleeding, Increased Pain/ Swelling, Increased Redness and Foul Smelling Discharge Call your doctor if you observe: Fever of 101 or Higher Suture Line Care: Avoid Pulling/Pushing and Avoid Pinching/Bending Additional Dressing/Incision Instructions:: Leave operative bandaids on for 2 days. When you remove dressing, leave Steri-Strips on until your follow-up appointment, or until the Steri-Strips fall off on their own. Follow Up Care Please Follow Up With: Sue Aguilar PA-C When: Call office to schedule an appointment to be seen in 7 days after surgery. Test Results: Test results from this visit will be discussed in further detail at your follow-up appointment, if applicable. Discharge Plan Admission Admit Date/Time: 06/28/21 14:21 Attending Provider: Goldy Vickers Primary Care Provider: Lenny Malik Discharge Orders/Prescriptions Prescriptions: New oxycodone-acetaminophen [Endocet] 5-325 mg tablet 1 tab PO Q4H PRN (Reason: pain) 5 Days Qty: 20 RF: 0 No Action metformin 850 mg tablet 850 mg PO BID Qty: 180 RF: 1 ondansetron 4 mg tablet,disintegrating 4 mg PO Q8H PRN PRN (Reason: Nausea) Qty: 10 RF: 0 oxycodone-acetaminophen [Percocet] 5-325 mg tablet 1 tab PO Q8H PRN (Reason: pain) 3 Days Qty: 12 RF: 0 omeprazole 40 mg capsule,delayed release(DR/EC) 40 mg PO DAILY PRN PRN (Reason: gerd) RF: 0 (DME) FreeStyle Lite Strips Strip See Rx Instructions .MEDSUPPLY Qty: 100 RF: 3 (DME) blood-glucose meter [FreeStyle Lite Meter] Kit See Rx Instructions .MEDSUPPLY Qty: 1 RF: 0 (DME) lancets [FreeStyle Lancets] 28 gauge misc See Rx Instructions .MEDSUPPLY Qty: 200 RF: 3 Referrals / Follow Up: Lenny Malik MD [Primary Care Provider] - Sue Aguilar PA-C [PHYSICIAN ATOMIC PHYSICS TEACHER] -
[2021-06-29] MEDS: 0.9% Saline Lock 10 ML Syringe IV (10:16)
== END 2021-06-29 13:03 | disposition home or self-care (01) ==
LOC: ED 14:11 → MS3 14:36
PROVIDERS: Anesthesiology; Admitting Provider Surgery; Emergency Provider Emergency Medicine; PCP Internal Medicine; Visit Provider Surgery
PROC: (CPT 47562; principal; 2021-06-29 07:10)
DX: K81.2 Acute cholecystitis with chronic cholecystitis (principal); E11.9 Type 2 diabetes mellitus without complications; I10 Essential (primary) hypertension; E78.5 Hyperlipidemia, unspecified; K21.9 Gastro-esophageal reflux disease without esophagitis; Z79.899 Other long term (current) drug therapy; Z79.84 Long term (current) use of oral hypoglycemic drugs; G47.30 Sleep apnea, unspecified
CPT/HCPCS: 47562; 00790; 36415; 80053; 82150; 82962; 83036; 83690; 85025; 88304; 93005; 96361; 96365; 96366; 96375; 96376; 99218; 99251; 99284; J7030; A4216; G0378; G0463; J2405

== ENCOUNTER 2021-07-05 10:14 | Emergency (ER) | payer OTHER, SELFPAY ==
[2021-07-05 10:15] VITALS: BP 115/82; PULSE 71; RESP 17; TEMP 36.2; O2SAT 96; BMI 33.5
[2021-07-05 10:19] VITALS: BP 115/82; PULSE 71; RESP 17; TEMP 36.2; O2SAT 96
[2021-07-05 10:22] VITALS: O2SAT 96
--- NOTE | 2021-07-05 10:27 | EKG12_ITS ---
Test Reason : SOB Blood Pressure : / mmHG Vent. Rate : 068 BPM Atrial Rate : 068 BPM P-R Int : 192 ms QRS Dur : 090 ms QT Int : 410 ms P-R-T Axes : 044 -15 007 degrees QTc Int : 435 ms Normal sinus rhythm Normal ECG Confirmed by MONIQUE ROLLINS, STEVEN ([id number]), sports editor PARISA MCQUEEN ([id number]) on 07/08/2021 10:51:55 AM Referred By: ALIRIO/IRAJ Confirmed By:STEVEN AMAYA MD
--- NOTE | 2021-07-05 10:27 | CT_ITS ---
STUDY: CTA CHEST REASON FOR EXAM: Male, 46 years old. Concern for PE. Shortness of breath. Recent cholecystectomy. RADIATION DOSAGE (If Supplied By Facility): CTDIvol = ( 13.76 ) mGy, DLP = ( 503.15 ) mGycm TECHNIQUE: The examination was performed with the intravenous administration of IV 100mL Isovue-370. Post-processing of the angiographic images was performed, with multiplanar reformation and 3D reconstruction. Individualized dose optimization techniques were used for this CT. COMPARISON: None. FINDINGS: Normal enhancement of the main pulmonary artery and right and left pulmonary arteries. Normal enhancement of the bilateral peripheral pulmonary arteries. There is no demonstrated pulmonary embolism. Normal thoracic aorta and visualized great vessels. There is no demonstrated aortic dissection. Normal heart and pericardium. Normal mediastinum. Normal hilar regions. Normal visualized trachea and bronchi. The lungs are well expanded. Mild degree of increased markings at the lung bases more prominent on the right side suggestive of bibasilar linear atelectasis. Normal pleura. Normal chest wall structures. There are degenerative changes of thoracic spine. Fatty infiltration of the liver. CT/CTA Chest W/WO Contrast IMPRESSION: No evidence of pulmonary emboli. Mild degree of bibasilar linear atelectasis slightly more prominent at the right lung base. Electronically Signed: Tristan Patton MD at 12:41 EST ,
--- NOTE | 2021-07-05 10:30 | ED.VIS.DYS ---
HPI <ROSA Braga - Last Filed: 07/05/21 13:33> History of Present Illness Chief Complaint: Shortness of Breath Narrative Narrative: 46-year-old male with history of diabetes presents the emerge department with concerns of shortness of breath. Patient had a cholecystectomy 7 days ago, over the last 2 days, he has had increased shortness of breath, he did see his surgeon for follow-up, the surgeon referred him to the emergency department for concern of a pulmonary embolus. Patient states that he does have some chest pressure, worse with exertion. Patient denies any recent fevers, chills, patient's blood sugars have been within normal limits. Patient knows that he is unable to do daily activities because to get so short of breath. PFS <ROSA Braga - Last Filed: 07/05/21 13:33> FOR[facility]LY [facility] Medical History (Updated 07/05/21 @ 13:32 by ROSA Braga) Abnormal EKG Cholecystectomy planned Depression GERD (gastroesophageal reflux disease) Hearing problem History of stress test Hyperlipidemia Hypertension Type 2 diabetes mellitus Home Medications blood sugar diagnostic #100 ea 02/18/21 [Rx Last Taken Unknown] blood-glucose meter #1 ea 02/18/21 [Rx Last Taken Unknown] lancets 28 gauge #200 ea 02/18/21 [Rx Last Taken Unknown] metformin 850 mg tablet 850 mg PO BID #180 tab 04/01/21 [Rx Last Taken 2 Days Ago ~06/26/21] omeprazole 40 mg PO DAILY PRN PRN 06/28/21 [History Last Taken 1 Month Ago ~05/28/21] Allergy/AdvReac Type Severity Reaction Status Date / Time No Known Allergies Allergy Verified 07/05/21 10:14 Family History Father Myocardial infarction Mother Diabetes CVA (cerebral vascular accident) Breast cancer Surgical History (Updated 07/05/21 @ 13:32 by ROSA Braga) History of appendectomy History of hernia repair Social History Smoking Status: Never smoker alcohol intake: current alcohol intake frequency: holidays/special occasions only Alcohol type: hard liquor substance use type: does not use what type of physical activity do you participate in: none ROS <ROSA Braga - Last Filed: 07/05/21 13:33> ROS ED ROS Narrative Patient complains of abdominal pain, chest pressure, increase shortness of breath. Cardiovascular Cardiovascular: Reports chest pain Respiratory/Chest Respiratory/Chest: Reports dyspnea and dyspnea on exertion Gastrointestinal Gastrointestinal: Reports abdominal pain EXAM <ROSA Braga - Last Filed: 07/05/21 13:33> Physical Exam Const Vital Signs: 07/05/21 10:15 07/05/21 10:19 07/05/21 10:22 Temperature 97.1 F L 97.1 F L Temperature Source Temporal Temporal Pulse Rate 71 71 Respiratory Rate 17 17 Respiratory Effort Normal Non-Labored Respiratory Depth Normal Respiratory Pattern Normal Blood Pressure 115/82 H 115/82 H Blood Pressure Mean 93 93 Pulse Ox 96 96 Oxygen Delivery Method Room Air Room Air Room Air 07/05/21 11:37 07/05/21 13:32 Temperature Temperature Source Pulse Rate Respiratory Rate Respiratory Effort Respiratory Depth Respiratory Pattern Blood Pressure 125/76 H Blood Pressure Mean 92 Pulse Ox 96 Oxygen Delivery Method Room Air HEENT atraumatic Eyes PERRL Resp normal respiratory effort Resp Narrative: Patient states that he feels shortness of breath worse on exertion. Cardio regular rhythm GI GI Narrative: Patient's abdomen looks well, incision sites look well, no signs of infection. Patient's abdomen is soft, is painful to palpation however this could be secondary to the surgery. Palpation: soft and tender Back/Spine normal to inspection Extremity normal to inspection Neuro oriented x3 Sensorium / Orientation: alert <Dr. Mohit Lim DO - Last Filed: 07/05/21 23:04> Physical Exam Const Vital Signs: 07/05/21 10:15 07/05/21 10:19 07/05/21 10:22 Temperature 97.1 F L 97.1 F L Temperature Source Temporal Temporal Pulse Rate 71 71 Respiratory Rate 17 17 Respiratory Effort Normal Non-Labored Respiratory Depth Normal Respiratory Pattern Normal Blood Pressure 115/82 H 115/82 H Blood Pressure Mean 93 93 Pulse Ox 96 96 Oxygen Delivery Method Room Air Room Air Room Air 07/05/21 11:37 07/05/21 13:32 Temperature Temperature Source Pulse Rate Respiratory Rate Respiratory Effort Respiratory Depth Respiratory Pattern Blood Pressure 125/76 H Blood Pressure Mean 92 Pulse Ox 96 Oxygen Delivery Method Room Air MDM <Santos Haider NP-C - Last Filed: 07/05/21 13:33> [facility] Narrative Medical decision making narrative: Patient appears well, patient appears nontoxic, vital signs are stable. Patient presents to the emergency department by referral from his surgeon for concerning for blood clot in his lungs. Patient had his gallbladder removed 7 days ago and developed shortness of breath for last 2 to 3 days. Patient did receive a full cardiac work-up, patient's high-sensitivity troponin was negative, patient is remaining lab work was unremarkable EKG was unremarkable. I did CT the patient's chest this was negative for any pulmonary embolus and only showed some minor atelectasis. Patient's vital signs remained stable throughout the stay here, patient looks well, feels well would like to be discharged. Patient will follow up closely with his PCP which she has an appointment with in 7 days. Instructed to return for any worsening shortness of breath, fever, chills, nausea vomiting. Patient stable for discharge Lab Data Attestation: I reviewed the patient's lab results. Labs: Laboratory Results - last 24 hr 07/05/21 07/05/21 11:35 11:35 WBC 6.9 RBC 5.56 Hgb 16.1 Hct 47.4 MCV 85.3 MCH 29.0 MCHC 34.0 RDW Std Deviation 37.8 RDW Coeff of Davian 12.1 Plt Count 283 MPV 9.6 Immature Gran % (Auto) 1.600 H Neut % (Auto) 57.7 Lymph % (Auto) 29.4 [place] % (Auto) 8.2 Eos % (Auto) 2.2 Baso % (Auto) 0.9 Absolute Neuts (auto) 4.0 Absolute Lymphs (auto) 2.02 Nucleated RBC % 0 Sodium 136 Potassium 4.2 Chloride 105 Carbon Dioxide 26.0 Anion Gap 5 BUN 22 H Creatinine 0.95 Estim Creat Clear Calc 99.25 Est GFR (MDRD) Af Amer 109 Est GFR (MDRD) Non-Af 90 BUN/Creatinine Ratio 23.1 H Glucose 103 Calcium 9.1 Troponin I High Sens 6 Lipase 146 Radiography Diagnostic Testing: Clinical Impression(s) from Imaging Studies Chest CTA 07/05/21 10:27 IMPRESSION: No evidence of pulmonary emboli. Mild degree of bibasilar linear atelectasis slightly more prominent at the right lung base. Electronically Signed: Tristan Patton MD at 12:41 EST , EKG Normal sinus rhythm, KS interval 119 ms, QRS duration 90 ms, no acute ST elevation, no acute infarct noted: Attestation: I personally reviewed and interpreted this EKG as follows: Interpretation: Sinus Rhythm <Dr. Mohit Lim, DO - Last Filed: 07/05/21 23:04> MDM MDM Narrative Medical decision making narrative: Attending note: Patient seen and evaluated with turbine mechanic. I agree with plan and work-up. I performed on [id number] evaluation. Postop emergent cholecystectomy a week ago by Dr. Vickers. Exertional dyspnea for the past 3 days. Seen by surgeon today. Sent to ED to rule out PE due to normal lung sounds. Exam vitals stable normal lung sounds laparoscopic incisions clean dry and intact. Labs obtained stable CT of the chest negative for PE. Patient is discharged with outpatient follow-up. Lab Data Attestation: I reviewed the patient's lab results. Labs: Laboratory Results - last 24 hr 07/05/21 07/05/21 11:35 11:35 WBC 6.9 RBC 5.56 Hgb 16.1 Hct 47.4 MCV 85.3 MCH 29.0 MCHC 34.0 RDW Std Deviation 37.8 RDW Coeff of Davian 12.1 Plt Count 283 MPV 9.6 Immature Gran % (Auto) 1.600 H Neut % (Auto) 57.7 Lymph % (Auto) 29.4 [place] % (Auto) 8.2 Eos % (Auto) 2.2 Baso % (Auto) 0.9 Absolute Neuts (auto) 4.0 Absolute Lymphs (auto) 2.02 Nucleated RBC % 0 Sodium 136 Potassium 4.2 Chloride 105 Carbon Dioxide 26.0 Anion Gap 5 BUN 22 H Creatinine 0.95 Estim Creat Clear Calc 99.25 Est GFR (MDRD) Af Amer 109 Est GFR (MDRD) Non-Af 90 BUN/Creatinine Ratio 23.1 H Glucose 103 Calcium 9.1 Troponin I High Sens 6 Lipase 146 Radiography Diagnostic Testing: Clinical Impression(s) from Imaging Studies Chest CTA 07/05/21 10:27 IMPRESSION: No evidence of pulmonary emboli. Mild degree of bibasilar linear atelectasis slightly more prominent at the right lung base. Electronically Signed: Tristan Patton MD at 12:41 EST , Discharge Plan Triage Chief Complaint: Shortness of Breath ED Provider: Santos Haider Dx/Rx/DC Orders Clinical Impression: SOB (shortness of breath) on exertion, History of cholecystectomy Instructions: After Gallbladder Surgery, ED Dyspnea Prescriptions: No Action metformin 850 mg tablet 850 mg PO BID Qty: 180 RF: 1 omeprazole 40 mg capsule,delayed release(DR/EC) 40 mg PO DAILY PRN PRN (Reason: gerd) RF: 0 (DME) FreeStyle Lite Strips Strip See Rx Instructions .MEDSUPPLY Qty: 100 RF: 3 (DME) blood-glucose meter [FreeStyle Lite Meter] Kit See Rx Instructions .MEDSUPPLY Qty: 1 RF: 0 (DME) lancets [FreeStyle Lancets] 28 gauge misc See Rx Instructions .MEDSUPPLY Qty: 200 RF: 3 Primary Care Provider: Lenny Malik Referrals: Lenny Malik MD [Primary Care Provider] - Activity Restrictions/Additional Instructions: Please follow-up with your surgeon, keep your appointment this upcoming week with your PCP. Please return for any worsening shortness of breath, fever chills nausea or vomiting. Disposition Disposition: Home, Self Care Discharge Date/Time: 07/05/21 13:44
[2021-07-05 11:42] LABS: Absolute Lymphocyte Count 2.02 X10^3/uL (0.83-4.51); Basophil# 0.06 X10^3/uL; Basophil% 0.9 % (0-1); Eosinophil# 0.15 X10^3/uL; Eosinophils% 2.2 % (0-5); Hematocrit 47.4 % (40-54); Hemoglobin 16.1 g/dL (13.0-16.5); Lymphocyte # 2.02 X10^3/ul (0.83-4.51); Lymphocyte % 29.4 % (19-41); Mean Corpuscular Volume 85.3 fL (80-94); Mean Platelet Vol. 9.6 fl (6.2-12.0); Monocyte# 0.56 X10^3/uL; Monocyte% 8.2 % (0-10); NRBC Flagged by Analyzer 0 % (0-5); Neutrophil # 3.97 X10^3/uL (2.7-7.7); Neutrophil % 57.7 % (47-70); Platelet Count 283 K/mm3 (150-450); RBC Distribution Width CV 12.1 % (11.6-14.6); RBC Distribution Width SD 37.8 fl (35.1-43.9); Red Blood Count 5.56 M/mm3 (4.6-6.2); White Blood Count 6.9 K/mm3 (4.4-11.0)
[2021-07-05 12:09] LABS: Anion Gap 5 (5-15); BUN 22 mg/dL (7-18); BUN/Creat Ratio 23.1 RATIO (10-20); Calcium,Total 9.1 mg/dL (8.5-10.1); Chloride 105 mmol/L (98-107); Creatinine, Serum 0.95 mg/dL (0.70-1.30); EST Glomerular Filtration Rate 90 mL/min (>60); Est Glom Filt Rate - Afr Amer 109 mL/min (>60); Estimated Creatinine Clearance 99.25 ml/min; Glucose 103 mg/dL (74-106); Lipase 146 U/L (73-393); Potassium 4.2 mmol/L (3.5-5.1); Sodium Level 136 mmol/L (136-145); Troponin-I HS 6 pg/mL (3.0-78.0)
[2021-07-05 13:32] VITALS: BP 125/76; O2SAT 96
== END 2021-07-05 13:44 | disposition home or self-care (01) ==
LOC: ED 11:04
PROVIDERS: Emergency Provider Nurse Practitioner; PCP Internal Medicine; Visit Provider Nurse Practitioner
DX: R06.02 Shortness of breath (principal); E11.9 Type 2 diabetes mellitus without complications; Z90.49 Acquired absence of other specified parts of digestive tract; I10 Essential (primary) hypertension; E78.5 Hyperlipidemia, unspecified
CPT/HCPCS: 71275; 80048; 83690; 84484; 85025; 93005; 99284; Q9967; A4216

== ENCOUNTER 2021-09-06 16:02 | Emergency (ER) | payer OTHER, SELFPAY ==
[2021-09-06 16:03] VITALS: BP 141/97; PULSE 71; RESP 16; TEMP 36.6; O2SAT 99; BMI 32.1
--- NOTE | 2021-09-06 16:28 | CT_ITS ---
STUDY: CT CERVICAL SPINE WITHOUT CONTRAST REASON FOR EXAM: Male, 46 years old. neck trauma RADIATION DOSAGE (If Supplied By Facility): CTDIvol = ( 24.10 ) mGy, DLP = ( 549.20 ) mGycm TECHNIQUE: High resolution transaxial imaging was performed without contrast material. Sagittal and coronal images were reconstructed. Individualized dose optimization techniques were used for this CT. COMPARISON: None FINDINGS: Normal craniovertebral junction. Normal anterior atlantoaxial articulation. Normal odontoid process. Decreased cervical lordosis. Normal vertebral bodies and posterior osseous elements. C2-3: Normal endplates. Normal disc height and morphology. Normal central canal and intervertebral neuroforamina. C3-4: Normal endplates. Normal disc height and morphology. Normal central canal and intervertebral neuroforamina. C4-5: Normal endplates. Normal disc height and morphology. Normal central canal and intervertebral neuroforamina. C5-6: Minor anterior endplate spurring.. Normal disc height and morphology. Normal central canal and intervertebral neuroforamina. C6-7: Mild narrowing of the disc space and endplate spurring. No focal disc protrusion.. Normal central canal and intervertebral neuroforamina. C7-T1: Normal endplates. Normal disc height and morphology. Normal central canal and intervertebral neuroforamina. Normal visualized soft tissue structures. CT/Spine Cervical without Contras IMPRESSION: Mild spondylosis. No acute fracture or other significant abnormality. Electronically Signed: Otoniel Lazar MD at 17:08 EDT ,
--- NOTE | 2021-09-06 16:28 | CT_ITS ---
STUDY: CT BRAIN WITHOUT CONTRAST REASON FOR EXAM: Male, 46 years old. trauma RADIATION DOSAGE (If Supplied By Facility): CTDIvol = ( ) mGy, DLP = ( ) mGycm TECHNIQUE: Transaxial CT imaging of the brain was performed without administration of intravenous contrast material. Individualized dose optimization techniques were used for this CT. COMPARISON: No relevant priors. FINDINGS: Normal soft tissue structures. Normal calvarium. Normal size ventricles and extra-axial spaces for the patient''s age. Normal white matter tracts of the cerebral hemispheres. Normal basal ganglia and thalami. Normal brainstem. Normal cerebellum. There is no intracranial hemorrhage. There are no findings of an acute ischemic infarction. Normal visualized paranasal sinuses. Nasal septal deviation to the right. CT/Brain/Head without Contrast IMPRESSION: Normal unenhanced CT scan of the brain. Electronically Signed: Maty Mei MD at 17:14 EDT [place] Location ID and State: [id number] / Tel , Service support ,
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
[2021-09-06] MEDS: Morphine 4 MG/ML Syringe IV (16:39)
[2021-09-06] MEDS: Ondansetron ODT 4 MG Tablet PO (16:39)
[2021-09-06 17:38] VITALS: BP 135/94; PULSE 74; RESP 17; O2SAT 95
[2021-09-06] MEDS: Orphenadrine 100 MG Tablet PO (17:39)
== END 2021-09-06 17:41 | disposition home or self-care (01) ==
PROVIDERS: Emergency Provider Student in an Organized Health Care Education/Training Program; PCP Internal Medicine; Visit Provider Student in an Organized Health Care Education/Training Program
DX: S09.90XA Unspecified injury of head, initial encounter (principal); E11.9 Type 2 diabetes mellitus without complications; E78.5 Hyperlipidemia, unspecified; S16.1XXA Strain of muscle, fascia and tendon at neck level, initial encounter; V89.2XXA Person injured in unspecified motor-vehicle accident, traffic, initial encounter; I10 Essential (primary) hypertension; K21.9 Gastro-esophageal reflux disease without esophagitis; F32.A Depression, unspecified
CPT/HCPCS: 70450; 72125; 96374; 99284; A4216

== ENCOUNTER 2021-10-08 07:30 | Outpatient (RCR) | payer OTHER, SELFPAY ==
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
--- NOTE | 2021-10-08 07:59 | HP.PTDCSUM ---
It has been my pleasure to treat KARI LYNN referred by Dr. Lenny Malik MD, with the diagnosis of CERVICALALGIA,RADICULOPATHY CERVICAL for a total of 5 visit(s). Discharge Date: Please see the following information for a summary of their discharge status. Subjective: Doing good ..no pain ,occasionally lifting shoulder..denies paresthesia. Wants to RTW Bilateral Neck Pain Intensity (Out of 10): 0 Bilateral Scapula Pain Intensity (Out of 10): 0 % Improvement: 95 Objective/Function: POSTURE: WFL. AROM: SHOULDER WNL. MMT: Grossly 4/5 BUE. 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 Thank you for the referral of this patient. Sincerely, Murphy Ellis, PT, Cert MDT, OCS Balance/Gait/Functional tests - Balance/Special Test Scores Oswestry Neck Score: 24 Quick DASH Score: 2.2725
== END 2021-10-08 19:00 | disposition home or self-care (01) ==
LOC: PT 07:30
PROVIDERS: PCP Internal Medicine; Referring Provider Internal Medicine; Visit Provider Internal Medicine
DX: M54.12 Radiculopathy, cervical region (principal)
CPT/HCPCS: 97014; 97110; 97140; 97162; G0283

== ENCOUNTER → 2022-03-07 | Outpatient (CLI) | payer OTHER, SELFPAY ==
--- NOTE | 2022-03-07 11:20 | RAD_ITS ---
STUDY: X-RAY CHEST REASON FOR EXAM: Male, 46 years old. Encounter for physical exam. TECHNIQUE: PA and lateral views of the chest. COMPARISON: July 18, 2021. FINDINGS: Improved inspiratory effort compared to prior study. There is no infiltrate or mass. There is no demonstrated pleural abnormality. Normal size heart. Normal mediastinum and vinicius. Normal visualized pulmonary arteries. Normal visualized aortic arch and descending thoracic aorta. Normal visualized thoracic spine. Normal visualized ribs, clavicles, and shoulders. There is no demonstrated abnormality of the visualized soft tissue structures of the upper abdomen. RAD/Chest PA and Lateral IMPRESSION: No acute cardiopulmonary disease. Electronically Signed: Hans Villareal DO at 17:43 EDT ,
[2022-03-07 11:23] LABS: Bacteria 0 SEEN /hpf (None Seen); Mucous, Urine 0 SEEN /hpf (<or=2+); Red Blood Cells-Urine 0 SEEN /hpf (0-5); Squamous Epithelial Cells - UA 0 SEEN /hpf (0-5); White Blood Cells 0 SEEN /hpf (0-5)
[2022-03-07 12:41] LABS: Hematocrit 49.2 % (40-54); Hemoglobin 16.8 g/dL (13.0-16.5); Mean Corp Hgb Conc 34.1 g/dL (32-36); Mean Corpuscular Hgb 29.6 pg (27.0-32.0); Mean Corpuscular Volume 86.8 fL (80-94); Mean Platelet Vol. 10.5 fl (6.2-12.0); Platelet Count 218 K/mm3 (150-450); RBC Distribution Width CV 12.5 % (11.6-14.6); RBC Distribution Width SD 39.5 fl (35.1-43.9); Red Blood Count 5.67 M/mm3 (4.6-6.2); White Blood Count 5.9 K/mm3 (4.4-11.0)
[2022-03-07 12:43] LABS: Color, Urine Yellow (Yellow); Glucose, Dipstick 50 mg/dl (Normal); Ketone-Dipstick 5 mg/dl (Negative); Leukocyte Esterase-Dipstick Negative /ul (Negative); Nitrite-Dipstick Negative (Negative); Occult Blood-Urine Negative /ul (Negative); Protein-Dipstick Negative (Negative); Specific Gravity, Urine 1.025 (1.002-1.030); Urine Bilirubin Dipstick Negative (Negative); Urine Clarity Clear (Clear); Urine Urobilinogen Normal (Normal)
[2022-03-07 13:11] LABS: AST(SGOT) 20 U/L (15-37); Bilirubin, Direct 0.08 mg/dL (0.00-0.30); LDH 227 U/L (87-241)
[2022-03-12 19:11] LABS: Arsenic 7245 < 1 ug/L (0-9); Hepatitis Be Ab Negative (Negative); Lead, Blood < 1.0 ug/dL (0.0-3.4); Mercury, Blood 85324 1.3 ug/L (0.0-14.9)
== END | disposition home or self-care (01) ==
LOC: MTLAB 11:20
PROVIDERS: PCP Internal Medicine; Referring Provider Physician Assistant Surgical; Visit Provider Physician Assistant Surgical
DX: Z00.00 Encounter for general adult medical examination without abnormal findings (principal)
CPT/HCPCS: 36415; 71046; 81001; 82175; 82247; 82248; 83615; 83655; 83825; 84450; 85027; 86707

== ENCOUNTER → 2023-02-20 | Outpatient (CLI) | payer OTHER, SELFPAY ==
[2023-02-20 12:29] LABS: Absolute Lymphocyte Count 1.69 X10^3/uL (0.83-4.51); Absolute Neutrophil Count 3.3 X10^3/uL (2.0-7.7); Basophil# 0.07 X10^3/uL; Basophil% 1.2 % (0-1); Eosinophil# 0.11 X10^3/uL; Eosinophils% 1.9 % (0-5); Hematocrit 51.7 % (40-54); Hemoglobin 16.7 g/dL (13.0-16.5); Lymphocyte # 1.69 X10^3/ul (0.83-4.51); Lymphocyte % 29.2 % (19-41); Mean Corp Hgb Conc 32.3 g/dL (32-36); Mean Corpuscular Volume 89.9 fL (80-94); Mean Platelet Vol. 10.9 fl (6.2-12.0); Monocyte# 0.54 X10^3/uL; Monocyte% 9.3 % (0-10); NRBC Flagged by Analyzer 0 % (0-5); Neutrophil # 3.33 X10^3/uL (2.7-7.7); Neutrophil % 57.5 % (47-70); Platelet Count 204 K/mm3 (150-450); RBC Distribution Width CV 12.1 % (11.6-14.6); RBC Distribution Width SD 39.5 fl (35.1-43.9); Red Blood Count 5.75 M/mm3 (4.6-6.2); White Blood Count 5.8 K/mm3 (4.4-11.0)
[2023-02-20 13:24] LABS: AST(SGOT) 21 U/L (15-37); Alanine Aminotransfer ALT/SGPT 46 U/L (16-61); Alkaline Phosphatase 80 U/L (45-117); Anion Gap 6 (5-15); BUN 22 mg/dL (7-18); BUN/Creat Ratio 19.1 RATIO (10-20); Calcium,Total 9.3 mg/dL (8.5-10.1); Chloride 107 mmol/L (98-107); Cholesterol 180 mg/dL (200); Creatinine, Serum 1.15 mg/dL (0.70-1.30); EST Glomerular Filtration Rate 72 mL/min (>60); Est Glom Filt Rate - Afr Amer 87 mL/min (>60); Globulin 4.1 g/dL (2.2-4.2); Glucose 111 mg/dL (74-106); High Density Lipoprotein 39 mg/dL; Potassium 4.3 mmol/L (3.5-5.1); Protein, Total 8.1 g/dL (6.4-8.2); Sodium Level 139 mmol/L (136-145); Triglycerides 171 mg/dL; Very Low Density Lipoprotein 34 mg/dL (5-40)
== END | disposition home or self-care (01) ==
PROVIDERS: PCP Internal Medicine; Referring Provider Internal Medicine; Visit Provider Internal Medicine
DX: I10 Essential (primary) hypertension (principal); R73.03 Prediabetes
CPT/HCPCS: 36415; 80053; 80061; 85025

== ENCOUNTER 2024-01-20 10:00 | Outpatient (RCR) | payer OTHER, SELFPAY ==
--- NOTE | 2023-11-24 13:58 | HP.PTEVAL_ITS ---
Patient's Visit Information Visit Information Visit Information: KARI LYNN is a 48 year old M referred to Physical Therapy by AIRAM PLASCENCIA with a diagnosis of strain of R RTC. Date of Evaluation: 11/24/23 Physical Therapist: Santos Owens DPT Visit Plan Frequency: 2-3x /Week Duration: 6 Weeks Plan: Start with progressive PROM of R shoulder, pulleys/wand exercises. Progress HEP to increase ROM at home. May use IFC and ice either post or during stretching to increase tolerance. Once ROM has improved initiate R shoulder isometrics then progressing to RTC strengthening to remodel the tissue. May also use US to reduce initial inflammatory process. Subjective Subjective: Pt. is here today for his initial evaluation with diagnosis of st rain of R RTC. Pt. reports getting injured at work. He was using an auger when it suddenly gave free. He felt a pop and felt instant pain. Initial DOI: 04/21/23. Pt. reports there was a mix up with approval on his therapy and is now finally able to get in. He did have an MRI showing no tear, but had a a separation. Pt. reports having increased pain with any lifting his arm up. Pt. reports some N/T at night if he lays on that side. He is not back to work currently. He is taking some anti inflammatory, with some mild relief allowing him to sleep ~2 hours. Pt. has not been able to do much exercises due to his pain. 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 He has not been back to work since. Physician put in for possible injections at next visit, but none at this point in time. Pt. is hopeful to increase the use of his R shoulder allowing him to return to work and all household activities. Pain R shoulder: Pain Intensity (Out of 10): 0 Pain Intensity Range: 0 and 8 Objective Objective: POSTURE: Pt. has lower R shoulder height compared to L side. Pt. is able to complete shoulder shrugs. PALPATION: Pt. has increased tenderness at anterior shoulder, throughout subacromial space. NEURO: Pt. has normal sensation and normal DTR of BUEs. ROM: AROM: R shoulder: flexion 90deg, abd 47deg, functional ER C1 but very aberrant motions, functional IR gluteal region on R side. PROM: R shoulder: flexion 100deg, abd 55deg, ER at 30deg of abd 35deg, IR at 30deg of abd 15deg. MMT: RUE: elbow: flexion 5.8#, ext 11.3#; shoulder: flexion 2.1#, abd 4.2#, ER 6.0#, IR 8.1# LUE: elbow: flexion 48.9#, ext 35.7#; shoulder flexion 33.3#, abd 33.4#, ER 31.1#, IR: 44.5# Balance/Special Test Scores Quick DASH Score: 77.2725 Goals Goal 1:: LTG: Pt. to be I with HEP for R shoulder ROM and strengthening. Goal Time Frame: 4-6 Weeks Goal 2:: STG: Pt. to have increased R shoulder PROM by 50% in all directions. Goal Time Frame: 2-4 Weeks Goal 3:: LTG: Pt. to have symmetrical R and L shoulder ROM allowing for increased tolerance to all functional activities and ADLs. Goal Time Frame: 4-6 Weeks Goal 4:: LTG: Pt. to have increased R UE strength increased by 10# throughout allowing for increased ability to complete all ADLs and household activities. Goal Time Frame: 4-6 Weeks Goal 5:: STG: Pt. to sleep throughout the night with 0-2/10 pain allowing for increased quality of life. Goal Time Frame: 2-4 Weeks Goal 6:: LTG: pt. to lift 15# OH indicating increased R shoulder strength with 0-1/10 pain progressing back towards work activities. Goal Time Frame: 6-8 Weeks Rehabilitation Potential Physical Therapy Diagnosis: Pt. has signs and symptoms consistent with strain of R RTC. Pt. presents with marked hypomobility and muscle weakness from lack of use over the past 7 months since surgery. At this point in time pt. would require PT to initially work on ROM temple, decrease in pain and progressive strengthening once his ROM has been restored. Rehabilitation Potential: Good Anticipated Interventions Patient/Client Instruction: Educate patient on: Condition, Plan of Care, Risk Factors and Benefits of Fitness Program For the Purpose of:: To facilitate caregiver knowledge, To improve self management, To prevent re-injury, To improve ability to perform tasks related to life management and To improve tolerance to ADL's Therapeutic Exercise to Include: Strength training, Body mechanics, Postural training, Flexibilty training, Passive ROM, Active ROM and Scapular Strength/Stabilization For the Purpose of:: To decrease pain, To decrease swelling/inflammation, To increase ROM, To improve nutrient delivery to tissue, To increase oxygenation perfusion, To improve muscle performance and motor function, To decrease soft tissue restriction, To increase flexibility/ROM and To improve endurance Manual Therapy Techniques to Include: Mobilization, Passive ROM and Functional dry needling For the Purpose of:: To decrease pain, To decrease swelling/inflammation, To increase ROM and To improve nutrient delivery to tissue TENS: Yes IF ES: Yes Cryotherapy (ice pack, ice massage): Yes Thermo therapy (hot pack): Yes Ultrasound (thermal/non thermal): Yes For the Purpose of:: To decrease pain, To improve nutrient delivery to tissue and To improve muscle performance and motor function Text: Thank you for the opportunity to evaluate your patient. For Medicare and Medicare HMO plans, please review the plan of care and approve it. It will need to be FAXED BACK to us at [phone] for Medicare purposes. For Medicare only, by signing this I certify the plan of care. Please let me know if there are questions or concerns regarding this plan of care. Physician Signature: Date:
--- NOTE | 2024-01-20 10:20 | HP.PTDCSUM ---
Discharge Summary D/C summary: It has been my pleasure to treat KARI LYNN referred by AIRAM PLASCENCIA, with the diagnosis of strain of R RTC for a total of 16 visit(s). Discharge Date: 01/20/24 Please see the following information for a summary of their discharge status. Subjective Subjective: Pt. reports as long as he doesn't move his arm is stays about 4/10, increased pain with any movement. New medication has been helpful with reducing symptoms. Pt. reports sleeping is still painful, unable to sleep in his bed. No much better overall. Pain R shoulder: Pain Intensity (Out of 10): 4 Overall Improvement % Improvement: 0 Objective Objective/Function: AROM: flexion 90deg, abd 80deg, functional IR L4, functional ER C1 aberrant motion. PROM: flexion 100deg, abd 91deg, ER at neutral 40deg, ER at 90deg 65deg, IR at 60deg of abd 30deg. MMT: L shoulder: 5/5 throughout. R shoulder: ER 3+/5 increase NW, IR 4+/5 mild increase NW, ext 5/5 NE, flexion 3/5 increase NW, abd 3/5 increase NW. Pt. has not had much progress with PT. He doesn't have much restriction with PROM motions, but has high levels of pain. He talked with physician and they recommended surgery at this point in time. Goals Goal 1:: LTG: Pt. to be I with HEP for R shoulder ROM and strengthening. Goal Progress: Goal Met Goal 2:: STG: Pt. to have increased R shoulder PROM by 50% in all directions. Goal Progress: Not Progressing Goal 3:: LTG: Pt. to have symmetrical R and L shoulder ROM allowing for increased tolerance to all functional activities and ADLs. Goal Progress: Not Progressing Goal 4:: LTG: Pt. to have increased R UE strength increased by 10# throughout allowing for increased ability to complete all ADLs and household activities. Goal Progress: Not Progressing Goal 5:: STG: Pt. to sleep throughout the night with 0-2/10 pain allowing for increased quality of life. Goal Progress: Not Progressing Goal 6:: LTG: pt. to lift 15# OH indicating increased R shoulder strength with 0-1/10 pain progressing back towards work activities. Goal Progress: Not Progressing Plan Plan: Pt. to be DC from PT at this point in time. He was not having much relief or progress and I would recommend going back to physician for further work up. D/C Information d/c sentence: If there are questions or concerns regarding this patient's physical therapy, please feel free to call me at [phone]. Thank you for the referral of this patient. Sincerely, Santos Paezos, DPT Balance/Gait/Functional tests Balance/Special Test Scores Quick DASH Score: 75.0000 Improvement % Improvement: 0
== END 2024-01-20 19:00 | disposition home or self-care (01) ==
LOC: PT 10:00
PROVIDERS: PCP Internal Medicine
DX: S46.011D Strain of muscle(s) and tendon(s) of the rotator cuff of right shoulder, subsequent encounter (principal)
CPT/HCPCS: 97014; 97110; 97140; 97161; 97530; G0283

== ENCOUNTER 2024-07-11 07:07 | Day surgery (SDC) | payer BC, SELFPAY ==
[2024-07-11] VITALS (8 sets, daily range): BP systolic 91–117; BP diastolic 65–88; PULSE 65–82; RESP 12–16; TEMP 36.1–36.9; O2SAT 94–99; BMI 32.5
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
--- NOTE | 2024-07-11 08:52 | PCM.POST.ANE ---
Anesthesia: Postop Eval I Current Vital Signs Temperature: 97 F Pulse Rate: 82 Blood Pressure: 102/70 Respiratory Rate: 16 Pulse Ox: 95 Oxygen Delivery Method: Room Air Assessment Airway patent: Yes Spontaneous unlabored respirations: Yes Mental status: Awake nausea: No Vomiting: No Anesthesia Complication: No Fluid Hydration Crystalloid volume administer (ml): 10 Total IV fluid infused: 10 Progress Note Anesthesia document: Postop Eval 1 completed: Yes
--- NOTE | 2024-07-11 09:09 | OP.CCLET_ITS ---
07/11/2024 Lenny Malik MD [address] [place] [address] [place] [address] Re : Colonoscopy procedure for Thom Hastingside Dear Dr. Malik This procedure was performed on Thursday, July 11, 2024. My impressions and recommendations are as follows: Impressions : - The entire examined colon is normal on direct and retroflexion views. - No specimens collected. Recommendations : - Discharge patient to home. - Resume previous diet. - Continue present medications. - Repeat colonoscopy in 10 years for screening purposes. My findings are described in the full procedure note, which is enclosed. If I can be of further assistance, please feel free to contact me at Doctor phone number(s): , Work: . Sincerely, MD Mulu Hassan MD 07/11/2024 9:09:04 AM This report has been signed electronically.
--- NOTE | 2024-07-11 09:09 | OP.COLON_ITS ---
Patient Name: Thom Maurer Procedure Date: 07/11/2024 8:36 AM Date of : 1975 Age: 49 Procedure: Colonoscopy Indications: Screening for colorectal malignant neoplasm Providers: Mulu Betancourt MD Referring MD: Mulu Betancourt MD Medicines: Monitored Anesthesia Care Patient Profile: This is a 49 year old male. Last Colonoscopy: more than 10 years ago. Complications: No immediate complications. Procedure: Pre-Anesthesia Assessment: - Prior to the procedure, a History and Physical was performed, and patient medications and allergies were reviewed. The patient's tolerance of previous anesthesia was also reviewed. The risks and benefits of the procedure and the sedation options and risks were discussed with the patient. All questions were answered, and informed consent was obtained. Prior Anticoagulants: The patient has taken no anticoagulant or antiplatelet agents. ASA Grade Assessment: Per anesthesia. After reviewing the risks and benefits, the patient was deemed in satisfactory condition to undergo the procedure. After I obtained informed consent, the scope was passed under direct vision. Throughout the procedure, the patient's blood pressure, pulse, and oxygen saturations were monitored continuously. The Colonoscope was introduced through the anus and advanced to the cecum, identified by the appendiceal orifice, ileocecal valve and palpation. The colonoscopy was performed without difficulty. The patient tolerated the procedure well. The quality of the bowel preparation was good. Scope In: 8:43:32 AM Scope Withdrawal Time 0 hours 9 minutes 49 seconds Scope Out: 9:03:32 AM Total Procedure Duration Time 0 hours 20 minutes 0 seconds Findings: The perianal and digital rectal examinations were normal. The entire examined colon appeared normal on direct and retroflexion views. Impression: - The entire examined colon is normal on direct and retroflexion views. - No specimens collected. Recommendation: - Discharge patient to home. - Resume previous diet. - Continue present medications. - Repeat colonoscopy in 10 years for screening purposes. Procedure Code(s): --- Professional --- G0121, PT, Colorectal cancer screening; colonoscopy on individual not meeting criteria for high risk Diagnosis Code(s): --- Professional --- Z12.11, Encounter for screening for malignant neoplasm of colon CPT copyright 2021 [employer]. All rights reserved. The codes documented in this report are preliminary and upon comber setter review may be revised to meet current compliance requirements. MD Mulu Hassan MD 07/11/2024 9:09:04 AM This report has been signed electronically. Number of Addenda: 0 Note Initiated On: 07/11/2024 8:36 AM
--- NOTE | 2024-07-11 09:27 | POSTOPAN2_ITS ---
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.[email or web address] Spontaneous unlabored Yes 07/11/24 09:14 TRACK INSPECTING SUPERVISOR.[email or web address] respirations Mental status Awake 07/11/24 09:14 TRACK INSPECTING SUPERVISOR.[email or web address] nausea No 07/11/24 09:14 TRACK INSPECTING SUPERVISOR.LMIL Vomiting No 07/11/24 09:14 TRACK INSPECTING SUPERVISOR.LMIL Anesthesia Postop Eval I: Fluid Summary Crystalloid volume administer 10 07/11/24 09:14 TRACK INSPECTING [email or web address].[email or web address] (ml) Colloids volume administered ( ml) Blood Product volume administered (ml) Total IV fluid infused 10 07/11/24 09:14 TRACK INSPECTING SUPERVISOR.LMIL Anesthesia Postop Eval I: Summary Notes Anesthesia Complication No 07/11/24 09:14 TRACK INSPECTING SUPERVISOR.[email or web address] Anesthesia Complication Comment: Post-operative progress note Anesthesia: Postop Eval II Evaluation Mental status: Awake Pain Level: 0 nausea: No Vomiting: No
--- NOTE | 2024-07-11 09:27 | PCM.POSTANE2 ---
Anesthesia Postop Eval I Sum Postop Eval Completion status Anesthesia document: Postop Eval 1 completed: Yes Anesthesia Postop Eval I Summary Anesthesia Postop Eval I Summary: Anesthesia Postop Eval I: Assessment Summary Airway patent Yes 07/11/24 09:14 COSMETOLOGY INSTRUCTOR.[email or web address] Spontaneous unlabored Yes 07/11/24 09:14 COSMETOLOGY INSTRUCTOR.LMIL respirations Mental status Awake 07/11/24 09:14 COSMETOLOGY INSTRUCTOR.LMIL nausea No 07/11/24 09:14 COSMETOLOGY INSTRUCTOR.LMIL Vomiting No 07/11/24 09:14 COSMETOLOGY INSTRUCTOR.LMIL Anesthesia Postop Eval I: Fluid Summary Crystalloid volume administer 10 07/11/24 09:14 COSMETOLOGY INSTRUCTOR.LMIL (ml) Colloids volume administered ( ml) Blood Product volume administered (ml) Total IV fluid infused 10 07/11/24 09:14 COSMETOLOGY INSTRUCTOR.LMIL Anesthesia Postop Eval I: Summary Notes Anesthesia Complication No 07/11/24 09:14 COSMETOLOGY INSTRUCTOR.LMIL Anesthesia Complication Comment: Post-operative progress note Anesthesia: Postop Eval II Evaluation Mental status: Awake Pain Level: 0 nausea: No Vomiting: No
== END 2024-07-11 09:51 | disposition home or self-care (01) ==
LOC: EN 07:07 → AC 07:09
PROVIDERS: PCP Internal Medicine; Referring Provider Internal Medicine; Visit Provider Surgery
PROC: 0DJD8ZZ Inspection of Lower Intestinal Tract, Via Natural or Artificial Opening Endoscopic (ICD-10-PCS; CPT 45378; principal; 2024-07-11 08:25)
DX: Z12.11 Encounter for screening for malignant neoplasm of colon (principal); E11.9 Type 2 diabetes mellitus without complications; I10 Essential (primary) hypertension; E78.5 Hyperlipidemia, unspecified; Z90.49 Acquired absence of other specified parts of digestive tract; K21.9 Gastro-esophageal reflux disease without esophagitis
CPT/HCPCS: 45378; A4216; J2405